=== PATIENT | male | born 1955 | race Caucasian/White ===

== ENCOUNTER 2018-10-25 15:44 | Inpatient (IN) | payer BC, MEDICARE ==
[~2018-10-25] VITALS: Ht 182.9 cm; Wt 118.0 kg
--- NOTE | ~2018-10-25 | PR ---
[place], [place] PROGRESS NOTE NAME: [facility] #: [id number] UNIT #: [id number] ROOM: 532 DOCTOR: AMADO ENGLISH MD,IRVIN BIRTHDATE: [birth year] DOS: 10/27/2018 SUBJECTIVE: The patient was noted quite comfortable at this time with significant reduction in symptoms of wheezing, coughing, shortness breath was noted. He had the bronchoscopy. Denies symptoms of chest pain. Denies symptoms of fever or chills. Denies symptoms of hemoptysis. OBJECTIVE: VITAL SIGNS: For the patient which are recorded showed normal temperature, respiratory rate 18, heart rate of 83, blood pressure 121/71, oxygen saturation recorded on room air 98% saturation. HEENT: Moderate obesity. NECK: Supple. CARDIOVASCULAR: S1, S2 audible. LUNGS: Without any wheeze or crackle at the present time. ABDOMEN: Soft, nontender. Bowel sounds present. EXTREMITIES: Without any acute edema. LABORATORY DATA: Culture of the bronchial washings noted normal deirdre, final results of cultures were pending. IMPRESSION: Resolving acute exacerbation of allergic bronchial asthma, eosinophilic phenotype with current medical management, status post bronchoscopy, reduction in respiratory symptom. PLAN OF TREATMENT: The patient could be discharged home on oral medication, which including tapering dose of prednisone. Outpatient followup to be established for further assessment and comprehensive management plan. Bronchial asthma to be instituted. IRVIN FISCHER MD CM:PNTRANS [id number] IRVIN ENGLISH MD 10/27/182204 interface
--- NOTE | ~2018-10-25 | PR ---
[place], [place] PROGRESS NOTE NAME: GIANFRANCO SIMMS [facility] #: [id number] UNIT #: [id number] ROOM: 532 DOCTOR: PINEDA CHAMBERS MD BIRTHDATE: [birth year] DOS: 10/27/2018 SUBJECTIVE: The patient states that he is 100% better. He is no longer coughing or short of breath. PHYSICAL EXAMINATION: VITAL SIGNS: Pressure is 121/71, pulse of 83, respirations 18, temperature 98.7. LUNGS: Diminished breath sounds, clear. HEART: Regular. ABDOMEN: Obese, soft. EXTREMITIES: Without any edema. LABORATORY DATA: Preliminary sputum culture shows normal deirdre. ASSESSMENT AND PLAN: 1. The patient who presents with acute exacerbation of moderate persistent asthma. The patient is placed on IV antibiotics, IV steroids, status post bronchoscopy. So far, the cultures are negative. 2. Compressive atelectasis, left lung base with a large hiatal hernia. White cell count was normal. Antibiotics were started, which will be continued as an outpatient. The patient is stable. Dr. Moran recommends that he be discharged to home today. Followup as an outpatient. PINEDA CHAMBERS MD CM:PNTRANS [id number] PINEDA CHAMBERS MD 10/27/18 1309 interface
--- NOTE | ~2018-10-25 | CON ---
[place], [place] REPORT OF CONSULTATION NAME: GIANFRANCO SIMMS [facility] #: [id number] UNIT #: [id number] ROOM: 532 DOCTOR: AMADO ENGLISH MDIRVIN BIRTHDATE: [birth year] DOS: 10/26/2018 PULMONARY CONSULTATION, EVALUATION AND MANAGEMENT CONSULTATION REQUESTED BY: Marycruz Hurd MD. REASON FOR CONSULTATION: Assessment of current nonresolving respiratory symptoms noted with severe cough present several times a day, nonproductive with associated wheezing. HISTORY OF PRESENT ILLNESS: A 63-year-old white male patient with history of bronchial asthma that has been noted long-term was getting progressive with respiratory symptoms with wheezing, coughing and shortness of breath. The patient's symptoms have been noted gradually worsening and not responding to the treatment. The cough has been noted severe, nonproductive. The patient's symptoms had been present for several months and not resolved, has been treated as an outpatient with different medications in the past as well. The patient denies symptoms of chest pain. Denies symptoms of hemoptysis. The patient denies symptoms of acute chest pain at this time. Wheezing has been reported continuously. REVIEW OF SYSTEMS: CONSTITUTIONAL SYMPTOMS: Fatigue and tiredness reported. Denies symptoms of fever or chills. EYES: Denies any burning, redness, or tenderness. EARS, NOSE, THROAT SYMPTOMS: No sore throat, hoarseness, otalgia, postnasal drainage or epistaxis. CARDIOVASCULAR: Denies angina pain, edema, or pain in lower extremities. GASTROINTESTINAL SYMPTOMS: Denies dysphagia, nausea, vomiting, diarrhea, abdominal pain, hematemesis, melena, or hematochezia. GENITOURINARY SYMPTOMS: Denies dysuria, suprapubic pain, or hematuria symptoms. CENTRAL NERVOUS SYSTEM: Denies dizziness, headache, diplopia, syncopal episode, or seizures. SKIN: No lesions or rashes. MUSCULOSKELETAL: Denies acute joint pain, redness, or tenderness. Remaining systems were reviewed. They were noted all negative. PAST MEDICAL HISTORY: 1. History of uncomplicated severe persistent bronchial asthma. 2. Essential hypertension. 3. Chronic obesity. 4. Gastroesophageal reflux. 5. Intervertebral disk disease. SOCIAL HISTORY: The patient is , lives at home, has 2 children. He has worked welding for 35 years. Tobacco use was noted from age [age] years old, half a pack of cigarettes a day for 5 years. Tobacco cessation was reported about 26-27 years ago. [place], [place] REPORT OF CONSULTATION NAME: GIANFRANCO SIMMS UNIT #: [id number] ROOM: 532 DOCTOR: AAMDO ENGLISH MD,IRVIN BIRTHDATE: [birth year] FAMILY HISTORY: The patient's mother with history of stroke. Father with complication of myocardial infarction. MEDICATIONS: From home listed on admission as use of ProAir HFA, AccuNeb, Advair, oxygen supplementation 2 liters at bedtime, lisinopril, Singulair, omeprazole, and Suboxone. DRUG ALLERGIES: Noted with no known drug allergies. PHYSICAL EXAMINATION: GENERAL: A 63-year-old white male patient currently resting comfortably on the bed. Height of 6 feet, weight of 117 kilograms, BMI 35. VITAL SIGNS: For the patient which has been recorded in the last 24 hours of hospitalization with normal temperature, respiratory rate 18-20, heart rate 91-108, blood pressure 101/64-122/66. The pulse oxygen saturation on room air was 92% at rest. HEENT: Moderate obesity. Head was atraumatic. Eyes, nonicterus. NECK: Supple. Decreased posterior pharyngeal space, high tongue base and crowding of soft tissue structures. CARDIOVASCULAR: S1, S2 audible. LUNGS: Diffuse moderate reduction in breath sounds with expiratory wheezing was present. There were no crackles. ABDOMEN: Soft. Mild to moderate obesity. Bowel sounds present. EXTREMITIES: Noted with chronic obesity. MUSCULOSKELETAL: Without any acute deformity. VISIBLE SKIN: No lesions or rashes. CENTRAL NERVOUS SYSTEM: Cranial nerves 2-12 intact. No focal deficit. LABORATORY DATA: CBC done yesterday on admission; WBC count normal, hemoglobin 13.8, hematocrit normal, platelet count normal. Eosinophils are 10.7%. BMP was noted as glucose 123, BUN normal, creatinine was normal. Remaining electrolytes normal. The sputum Gram stain of yesterday; many white blood cells, few epithelial cells, many gram-positive cocci in pairs, chains and clusters with rare budding yeast. The patient had a CT scan of the chest that was ordered by the primary care attending yesterday was reviewed personally without contrast limiting the assessment of the mediastinal structures. The CT scan of the chest shows small area of ground-glass opacity noted in the left mid lung. Compression atelectasis in the left lower lobe with a large hiatal hernia as well. It is resulting in elevation of the left hemidiaphragm. The right lung appeared to be clear of any acute infiltration. IMPRESSION: The patient will be admitted to the hospital with: 1. Nonresponsive to the outpatient treatment. Persistent wheezing, which has been noted with progression of the cough and shortness of breath and currently admitted to the hospital for medical management of acute exacerbation, uncomplicated with severe persistent bronchial asthma. The characterization of asthma will be considered as an eosinophilic phenotype with severe eosinophilia noted on admission. 2. The patient with gastroesophageal reflux, hiatal hernia with possibility of microaspiration resulting in uncontrolled bronchial asthma as well. [place], [place] REPORT OF CONSULTATION NAME: GIANFRANCO SIMMS UNIT #: [id number] ROOM: [facility] DOCTOR: IRVIN RHODES MD BIRTHDATE: [birth year] 3. Suspicion of obstructive sleep apnea disorder as well. 4. The patient with moderate obesity. 5. History of essential hypertension. PLAN OF MANAGEMENT: Therapeutic bronchoscopy was assessed for the patient at this time to be performed today for assessment of current severe chronic coughing and wheezing assessment. The patient will be continued on Solu-Medrol. At the present time, the current dose of Solu-Medrol for this patient is 30 mg t.i.d. Bronchodilators every 4 hours and DuoNeb will be continued. Monitor results of sputum cultures and bronchial washing cultures. Outpatient assessment for possible consideration of the use of the medication such as the Fasenra or Nucala or similar medication for the long-term management of the eosinophilic type, uncomplicated, severe persistent bronchial asthma. Continue abstinence from tobacco use as well. Bronchodilators. Aspiration precaution. Possible assessment of gastroesophageal noted uncontrolled. Outpatient assessment to maximize the management as well. Other supportive therapy, plan of management, additional care changes will be ordered based on the progression of his illness. Thank you for allowing me to participate in the care of this patient. IRVIN FISCHER MD CM:CONSTR:REPORT OF CONSULTATION [id number] 10/27/18 0400 interface
--- NOTE | ~2018-10-25 | WRIGHTHP ---
[place], [place] PATIENT HISTORY AND PHYSICAL EXAM NAME: GIANFRANCO SIMMS UNIT #: [id number] ROOM: 532 DOCTOR: PINEDA CHAMBERS MD BIRTHDATE: [birth year] DOS: HISTORY OF PRESENT ILLNESS: This is a 63-year-old patient who is very well known to us. He has been sick for 2 months now. He was initially admitted to the hospital last month with acute asthma exacerbation, went home and continued to get sick and has not improved much and continues to have a cough and increasing difficulty breathing. He has been using his oxygen all night long and taking multiple breathing treatments. Denies having any chest pains or palpitations. PAST MEDICAL HISTORY: Significant for: 1. Moderate intermittent asthma with recent exacerbation. 2. Hiatal hernia with chronic reflux disease. 3. Chronic respiratory failure, oxygen dependent. 4. Benign hypertension. 5. Opioid dependence by history. MEDICATIONS: Lisinopril 40 daily, omeprazole 20 daily, Pulmicort twice a day, breathing treatments q. 6 hours, Singulair 10 daily, Suboxone 3 tablets twice a day. SOCIAL HISTORY: Nonsmoker, does not use any alcohol. PHYSICAL EXAMINATION: GENERAL: He is awake and alert and oriented. VITAL SIGNS: Graphic trend shows pressure of 132/70, pulse of 76, respirations 14, afebrile. NECK: Supple. LYMPH NODES: No lymph nodes. LUNGS: Diminished breath sounds. Scattered wheezes bilaterally. HEART: Regular. ABDOMEN: Obese. EXTREMITIES: Without any edema. ASSESSMENT AND PLAN: 1. The patient with moderate intermittent asthma, which is now becoming persistent. The patient is being admitted for IV steroids. CT of the chest will be ordered. 2. Tracheobronchitis, acute without much resolution on multiple doses of antibiotics as an outpatient. He has failed outpatient regimen, so we will place him on IV steroids and antibiotics will be added. Sputum cultures will be ordered. May require a bronchoscopy. 3. Benign hypertension, controlled. Check echocardiogram. 4. History of opioid dependence. Continue Suboxone. [place], [place] PATIENT HISTORY AND PHYSICAL EXAM NAME: GIANFRANCO SIMMS UNIT #: [id number] ROOM: 532 DOCTOR: PINEDA CHAMBERS MD BIRTHDATE: [birth year] PINEDA CHAMBERS MD CM:JAMIL:PATIENT HISTORY AND PHYSICAL EXAMINATION 5 1 PINEDA CHAMBERS MD 10/26/18 0900 interface
--- NOTE | ~2018-10-25 | PROC NOTE ---
[place], [place] PROCEDURE NOTE NAME: GIANFRANCO SIMMS UNIT #: [id number] ROOM: 532 DOCTOR: AMADO ENGLISH MD,IRVIN BIRTHDATE: [birth year] DOS: 10/26/2018 PROCEDURE: BRONCHOSCOPY PREOPERATIVE DIAGNOSES: The patient with severe nonresolving cough and wheezing for several months ____ exacerbation, rule out endobronchial obstruction and mucous impaction. POSTOPERATIVE DIAGNOSES: Mild to moderate impaction and mucus and bronchial tree bilaterally. FINDINGS: Acute tracheobronchitis. There were no endobronchial obstruction. PROCEDURE DESCRIPTION: Informed consent obtained for the patient. The patient brought to the OR and placed in supine position. Conscious sedation administered by Anesthesia Department. After that, airway introduced in the mouth. Bronchoscope advanced to airway into laryngeal area. Epiglottis and vocal cords were seen. Vocal cord. The patient is moving symmetrically with movements. Bronchoscope advanced vocal cord and tracheal lumen. Tracheal lumen was identified shows small amount of secretion, which appeared to be mostly mucoid. Secretions suctioned at jaspal level. Right upper, right middle, right lower, left upper, lingula, lower lobe division the endobronchial tree was inspected small to moderate impaction of the mucus noted from the endobronchial tree suctioned out with half normal saline wash, sent for culture. There were no endobronchial obstructive lesions. Bronchial washings sent for cultures. Postoperative findings, the patient were discussed with patient's spouse in detail in the recovery room. No changes immediately at this time and the treatment will be necessary. IRVIN FISCHER MD CM:PROCNOTE:PROCEDURE NOTE [id number] IRVIN ENGLISH MD
[~2018-10-25 15:44] MED LIST: ACCUNEB 0.0.63 MG/3 INH; ADVAIR 250/501 EA INH; CARDIZEM CD300 MG PO; CIPRO500 MG PO; DELTASONE5 MG PO; DOXYCYCLINE100 M3 PO; DURAGESIC100 MCG/HR TD; HYDROCODONE BIT1 T11 PO; LISINOPRIL10 MG PO; MOTRIN800 MG PO; NEXIUM40 MG PO; OMEPRAZOLE D/R20 MG PO; OXYGEN NAS; PEN-VEE K500 MG PO; PERCOCET 325 MG1 TA7 PO; PREDNISONE5 MG PO; PROAIR HFA8.5 GM INH; SINGULAIR10 M1 PO; SUBOXONE 8 MG-1 EACH SL; ZESTRIL40 MG PO
[2018-10-25 16:00] VITALS: BP 95/64
[2018-10-25 16:46] LABS: BASO # 0.1 10*3/uL (0.0-0.1); BASO % 1.1 % (0.0-1.0); EOS # 0.7 10*3/uL (0.0-0.4); EOS % 10.7 % (1.0-4.0); HEMATOCRIT 42.1 % (42.0-52.0); HEMOGLOBIN 13.8 g/dl (14.0-18.0); LYMPH # 1.3 10*3/uL (1.3-4.4); LYMPH % 20.3 % (27.0-41.0); MEAN CELL VOLUME 94.6 fl (80.0-94.0); MEAN CORPUSCULAR HGB CONC 32.8 g/dl (33.0-37.0); MEAN PLATELET VOLUME 12.5 fl (9.6-12.3); MONO # 0.6 10*3/uL (0.1-1.0); MONO % 9.6 % (3.0-9.0); NEUT # 3.7 10*3/uL (2.3-7.9); NEUT % 57.7 % (47.0-73.0); PLATELET COUNT AUTOMATED 249 10*3/uL (130-400); RED BLOOD COUNT 4.45 10*6/uL (4.50-5.90); RED CELL DISTRI WIDTH 12.5 % (0-14.5); WHITE BLOOD COUNT 6.4 10*3/uL (4.8-10.8)
[2018-10-25 17:37] LABS: BUN 12 mg/dl (7-24); CHLORIDE 104 mmol/L (98-107); CREATININE 1.04 mg/dL (0.70-1.30); SODIUM 141 mmol/L (136-145)
[2018-10-25 20:00] VITALS: BP 130/84
[2018-10-26] VITALS (10 sets, daily range): BP systolic 101–146; BP diastolic 58–77
[2018-10-27 08:00] VITALS: BP 121/71
[2018-10-27] MEDS ORDERED: PREDNISONE5 MG PO (08:40)
[2018-10-27] MEDS ORDERED: DOXYCYCLINE100 M3 PO (08:40)
[2018-10-27 14:09] LABS: ACID FAST SPEC PROCESSING Concentration (.)
== END 2018-10-27 09:50 | disposition home or self-care (01) | DRG 202 ==
LOC: 5E 15:44
PROVIDERS: Internal Medicine; Internal Medicine Critical Care Medicine
PROC: 0BCB8ZZ Extirpation of Matter from Left Lower Lobe Bronchus, Via Natural or Artificial Opening Endoscopic (ICD-10-PCS; principal; 2018-10-26)
PROC: 0BC68ZZ Extirpation of Matter from Right Lower Lobe Bronchus, Via Natural or Artificial Opening Endoscopic (ICD-10-PCS; principal; 2018-10-26)
PROC: 0BC78ZZ Extirpation of Matter from Left Main Bronchus, Via Natural or Artificial Opening Endoscopic (ICD-10-PCS; principal; 2018-10-26)
PROC: 0BC18ZZ Extirpation of Matter from Trachea, Via Natural or Artificial Opening Endoscopic (ICD-10-PCS; principal; 2018-10-26)
PROC: 0BC48ZZ Extirpation of Matter from Right Upper Lobe Bronchus, Via Natural or Artificial Opening Endoscopic (ICD-10-PCS; principal; 2018-10-26)
PROC: 0BC58ZZ Extirpation of Matter from Right Middle Lobe Bronchus, Via Natural or Artificial Opening Endoscopic (ICD-10-PCS; principal; 2018-10-26)
PROC: 0BC38ZZ Extirpation of Matter from Right Main Bronchus, Via Natural or Artificial Opening Endoscopic (ICD-10-PCS; principal; 2018-10-26)
PROC: 0BC98ZZ Extirpation of Matter from Lingula Bronchus, Via Natural or Artificial Opening Endoscopic (ICD-10-PCS; principal; 2018-10-26)
PROC: 0BC28ZZ Extirpation of Matter from Carina, Via Natural or Artificial Opening Endoscopic (ICD-10-PCS; principal; 2018-10-26)
PROC: 0BC88ZZ Extirpation of Matter from Left Upper Lobe Bronchus, Via Natural or Artificial Opening Endoscopic (ICD-10-PCS; principal; 2018-10-26)
DX: J45.51 Severe persistent asthma with (acute) exacerbation (principal); T17.590A Other foreign object in bronchus causing asphyxiation, initial encounter; F11.20 Opioid dependence, uncomplicated; J98.11 Atelectasis; I10 Essential (primary) hypertension; E66.9 Obesity, unspecified; K21.9 Gastro-esophageal reflux disease without esophagitis; K44.9 Diaphragmatic hernia without obstruction or gangrene; J20.9 Acute bronchitis, unspecified; X58.XXXA Exposure to other specified factors, initial encounter; J45.40 Moderate persistent asthma, uncomplicated; Z68.35 Body mass index [BMI] 35.0-35.9, adult; Y93.89 Activity, other specified; Y92.89 Other specified places as the place of occurrence of the external cause; Y99.8 Other external cause status; Z82.3 Family history of stroke; Z82.49 Family history of ischemic heart disease and other diseases of the circulatory system

== ENCOUNTER → 2019-07-20 | Outpatient (CLI) | payer BC, MEDICARE ==
[2019-07-20 11:06] LABS: BASO # 0.1 10*3/uL (0.0-0.1); BASO % 1.3 % (0.0-1.0); EOS # 0.2 10*3/uL (0.0-0.4); EOS % 4.1 % (1.0-4.0); HEMATOCRIT 44.9 % (42.0-52.0); HEMOGLOBIN 14.1 g/dl (14.0-18.0); LYMPH # 1.4 10*3/uL (1.3-4.4); LYMPH % 30.1 % (27.0-41.0); MEAN CELL VOLUME 95.9 fl (80.0-94.0); MEAN CORPUSCULAR HGB 30.1 pg (27.0-31.0); MEAN CORPUSCULAR HGB CONC 31.4 g/dl (33.0-37.0); MEAN PLATELET VOLUME 10.3 fl (9.6-12.3); MONO # 0.5 10*3/uL (0.1-1.0); MONO % 11.5 % (3.0-9.0); NEUT # 2.4 10*3/uL (2.3-7.9); NEUT % 52.8 % (47.0-73.0); PLATELET COUNT AUTOMATED 225 10*3/uL (130-400); RED BLOOD COUNT 4.68 10*6/uL (4.50-5.90); RED CELL DISTRI WIDTH 11.7 % (0-14.5); WHITE BLOOD COUNT 4.6 10*3/uL (4.8-10.8)
[2019-07-20 11:38] LABS: ALBUMIN 3.5 gm/dl (3.1-4.5); ALKALINE PHOSPHATASE 80 U/L (45-117); BUN 17 mg/dl (7-24); CHLORIDE 101 mmol/L (98-107); CHOLESTEROL 183 mg/dL (<200); CREATININE 0.96 mg/dL (0.70-1.30); FREE T4 0.92 ng/dl (0.76-1.46); HDL CHOLESTEROL 51 mg/dl (40-60); LDL CHOLESTEROL 118 mg/dL (9-159); POTASSIUM 4.3 mmol/L (3.5-5.1); SGOT/AST 13 IU/L (3-35); SGPT/ALT 21 U/L (12-78); SODIUM 135 mmol/L (136-145); TOTAL PROTEIN 7.5 gm/dL (6.4-8.2); TRIGLYCERIDES 69 mg/dl (<150); VLDL CHOLESTEROL 14 mg/dL (6-40)
[2019-07-20 11:43] LABS: VITAMIN D, 25-HYDROXY 29.3 ng/mL (30-100)
== END | disposition home or self-care (01) ==
LOC: LAB 10:01
PROVIDERS: Internal Medicine
DX: Z12.5 Encounter for screening for malignant neoplasm of prostate (principal); D18.01 Hemangioma of skin and subcutaneous tissue; I10 Essential (primary) hypertension; R74.8 Abnormal levels of other serum enzymes; R53.81 Other malaise; E55.9 Vitamin D deficiency, unspecified; R79.89 Other specified abnormal findings of blood chemistry

== ENCOUNTER → 2019-12-17 | Outpatient (CLI) | payer BC, MEDICARE ==
[2019-12-17 12:31] LABS: BASO % 0.9 % (0.0-1.0); EOS # 0.1 10*3/uL (0.0-0.4); EOS % 2.6 % (1.0-4.0); LYMPH # 1.2 10*3/uL (1.3-4.4); LYMPH % 24.9 % (27.0-41.0); MEAN CELL VOLUME 94.8 fl (80.0-94.0); MEAN CORPUSCULAR HGB 30.2 pg (27.0-31.0); MEAN CORPUSCULAR HGB CONC 31.8 g/dl (33.0-37.0); MEAN PLATELET VOLUME 10.2 fl (9.6-12.3); MONO # 0.5 10*3/uL (0.1-1.0); MONO % 9.8 % (3.0-9.0); NEUT # 2.9 10*3/uL (2.3-7.9); NEUT % 61.4 % (47.0-73.0); PLATELET COUNT AUTOMATED 208 10*3/uL (130-400); RED BLOOD COUNT 4.64 10*6/uL (4.50-5.90); RED CELL DISTRI WIDTH 11.9 % (0-14.5); WHITE BLOOD COUNT 4.7 10*3/uL (4.8-10.8)
[2019-12-17 12:49] LABS: ALBUMIN 3.7 gm/dl (3.1-4.5); ALKALINE PHOSPHATASE 64 U/L (45-117); BUN 15 mg/dl (7-24); CHLORIDE 104 mmol/L (98-107); CHOLESTEROL 197 mg/dL (<200); CREATININE 1.04 mg/dL (0.70-1.30); HDL CHOLESTEROL 50 mg/dl (40-60); LDL CHOLESTEROL 129 mg/dL (9-159); POTASSIUM 4.7 mmol/L (3.5-5.1); SGOT/AST 12 IU/L (3-35); SGPT/ALT 25 U/L (12-78); SODIUM 137 mmol/L (136-145); TOTAL PROTEIN 7.5 gm/dL (6.4-8.2); TRIGLYCERIDES 88 mg/dl (<150); VLDL CHOLESTEROL 18 mg/dL (6-40)
[2019-12-17 12:54] LABS: FREE T4 0.99 ng/dl (0.76-1.46)
[2019-12-17 15:11] LABS: VITAMIN D, 25-HYDROXY 33.9 ng/mL (30-100)
== END | disposition home or self-care (01) ==
LOC: LAB 12:05
PROVIDERS: Internal Medicine
DX: Z12.5 Encounter for screening for malignant neoplasm of prostate (principal); Z13.220 Encounter for screening for lipoid disorders; I10 Essential (primary) hypertension; E55.9 Vitamin D deficiency, unspecified

== ENCOUNTER → 2020-01-02 | Outpatient (CLI) | payer BC, MEDICARE | END | disposition home or self-care (01) | LOC: CARD 09:03 | DX: R06.02 Shortness of breath (principal) ==

== ENCOUNTER → 2021-07-10 | Outpatient (CLI) | payer BC, MEDICARE | END | disposition home or self-care (01) | LOC: US 09:30 | PROVIDERS: ATTEND Internal Medicine | DX: I73.9 Peripheral vascular disease, unspecified (principal) ==

== ENCOUNTER → 2022-04-07 | Outpatient (CLI) | payer BC, MEDICARE ==
[2022-04-07 12:07] LABS: BASO # 0.1 10*3/uL (0.0-0.1); BASO % 0.9 % (0.0-1.0); EOS # 0.3 10*3/uL (0.0-0.4); EOS % 5.4 % (1.0-4.0); LYMPH % 17.2 % (27.0-41.0); MEAN CELL VOLUME 94.9 fl (80.0-94.0); MEAN CORPUSCULAR HGB 29.6 pg (27.0-31.0); MEAN CORPUSCULAR HGB CONC 31.2 g/dl (33.0-37.0); MEAN PLATELET VOLUME 9.9 fl (9.6-12.3); MONO # 0.6 10*3/uL (0.1-1.0); MONO % 9.6 % (3.0-9.0); NEUT # 3.8 10*3/uL (2.3-7.9); NEUT % 66.4 % (47.0-73.0); PLATELET COUNT AUTOMATED 213 10*3/uL (130-400); RED BLOOD COUNT 4.53 10*6/uL (4.50-5.90); RED CELL DISTRI WIDTH 11.9 % (0-14.5); WHITE BLOOD COUNT 5.7 10*3/uL (4.8-10.8)
[2022-04-07 12:25] LABS: BUN 10 mg/dl (7-24); CHLORIDE 102 mmol/L (98-107); POTASSIUM 4.6 mmol/L (3.5-5.1); SGPT/ALT 23 U/L (12-78); SODIUM 136 mmol/L (136-145)
[2022-04-07 12:29] LABS: ALKALINE PHOSPHATASE 75 U/L (45-117); CHOLESTEROL 160 mg/dL (<200); CREATININE 0.95 mg/dL (0.70-1.30); LDL CHOLESTEROL 98 mg/dL (9-159); SGOT/AST 13 IU/L (3-35); T3 UPTAKE 32 % (31-39); TOTAL PROTEIN 7.4 gm/dL (6.4-8.2); TRIGLYCERIDES 65 mg/dl (<150)
[2022-04-07 13:01] LABS: VITAMIN D, 25-HYDROXY 35.1 ng/mL (30-100)
== END | disposition home or self-care (01) ==
LOC: LAB 11:42
PROVIDERS: ATTEND Internal Medicine
DX: Z13.6 Encounter for screening for cardiovascular disorders (principal); E55.9 Vitamin D deficiency, unspecified; Z13.89 Encounter for screening for other disorder; Z13.21 Encounter for screening for nutritional disorder; Z13.220 Encounter for screening for lipoid disorders; Z13.228 Encounter for screening for other metabolic disorders; Z13.29 Encounter for screening for other suspected endocrine disorder; Z13.9 Encounter for screening, unspecified; I10 Essential (primary) hypertension; R06.02 Shortness of breath

== ENCOUNTER 2022-12-21 13:45 | Inpatient (IN) | payer BC, MEDICARE ==
[~2022-12-21] VITALS: Ht 182.9 cm; Wt 117.9 kg
[2022-12-21 14:05] VITALS: BP 125/72
[2022-12-21] MEDS ORDERED: LISINOPRIL20 MG PO (14:17)
[2022-12-21] MEDS ORDERED: BUPRENORPHINE-1 EAC2 SL (14:46)
[2022-12-21 14:51] LABS: BASO % 0.6 % (0.0-1.0); EOS # 0.1 10*3/uL (0.0-0.4); EOS % 1.5 % (1.0-4.0); HEMATOCRIT 42.6 % (42.0-52.0); LYMPH # 1.1 10*3/uL (1.3-4.4); LYMPH % 19.8 % (27.0-41.0); MEAN CELL VOLUME 94.9 fl (80.0-94.0); MEAN CORPUSCULAR HGB 30.3 pg (27.0-31.0); MEAN CORPUSCULAR HGB CONC 31.9 g/dl (33.0-37.0); MEAN PLATELET VOLUME 10.1 fl (9.6-12.3); MONO # 0.4 10*3/uL (0.1-1.0); MONO % 7.7 % (3.0-9.0); NEUT # 3.7 10*3/uL (2.3-7.9); PLATELET COUNT AUTOMATED 158 10*3/uL (130-400); RED BLOOD COUNT 4.49 10*6/uL (4.50-5.90); RED CELL DISTRI WIDTH 11.9 % (0-14.5); WHITE BLOOD COUNT 5.3 10*3/uL (4.8-10.8)
[2022-12-21 15:23] LABS: BUN 11 mg/dl (9-23); CHLORIDE 101 mmol/L (98-107); POTASSIUM 3.9 mmol/L (3.4-5.1)
[2022-12-21 16:00] VITALS: BP 102/60
[2022-12-21 20:00] VITALS: BP 112/68
[2022-12-22] VITALS: BP 102/60
[2022-12-22 07:30] VITALS: BP 120/70
== END 2022-12-22 09:55 | disposition home or self-care (01) | DRG 189 ==
LOC: 5E 13:45
PROVIDERS: ADMIT Internal Medicine; ATTEND Internal Medicine
DX: J96.01 Acute respiratory failure with hypoxia (principal); J45.21 Mild intermittent asthma with (acute) exacerbation; J20.9 Acute bronchitis, unspecified; I10 Essential (primary) hypertension; M47.892 Other spondylosis, cervical region; M47.896 Other spondylosis, lumbar region; K21.9 Gastro-esophageal reflux disease without esophagitis

== ENCOUNTER → 2023-07-04 | Outpatient (CLI) | payer OTHER ==
[~2023-07-04] MED LIST changes: +BUPRENORPHINE-1 EAC2 SL; +LISINOPRIL20 MG PO
[2023-07-04 10:10] LABS: BASO % 0.8 % (0.0-1.0); EOS # 0.1 10*3/uL (0.0-0.4); EOS % 2.4 % (1.0-4.0); HEMATOCRIT 44.9 % (42.0-52.0); LYMPH # 1.5 10*3/uL (1.3-4.4); LYMPH % 30.6 % (27.0-41.0); MEAN CELL VOLUME 95.3 fl (80.0-94.0); MEAN CORPUSCULAR HGB 29.5 pg (27.0-31.0); MEAN PLATELET VOLUME 9.9 fl (9.6-12.3); MONO # 0.5 10*3/uL (0.1-1.0); MONO % 10.7 % (3.0-9.0); NEUT # 2.7 10*3/uL (2.3-7.9); NEUT % 55.1 % (47.0-73.0); PLATELET COUNT AUTOMATED 204 10*3/uL (130-400); RED BLOOD COUNT 4.71 10*6/uL (4.50-5.90); RED CELL DISTRI WIDTH 12.3 % (0-14.5)
[2023-07-04 10:45] LABS: VITAMIN D, 25-HYDROXY 49.5 ng/mL (30-100)
[2023-07-04 10:46] LABS: ALKALINE PHOSPHATASE 70 U/L (46-116); BUN 11 mg/dl (9-23); CHLORIDE 100 mmol/L (98-107); CHOLESTEROL 188 mg/dL (<200); FREE T4 1.25 ng/dl (0.89-1.76); LDL CHOLESTEROL 123 mg/dL (9-159); POTASSIUM 4.4 mmol/L (3.4-5.1); SGPT/ALT 12 U/L (10-49); TOTAL PROTEIN 7.2 gm/dL (6.0-8.0); TRIGLYCERIDES 47 mg/dl (<150)
== END | disposition home or self-care (01) ==
LOC: LAB 09:20
PROVIDERS: ATTEND Internal Medicine
DX: Z12.5 Encounter for screening for malignant neoplasm of prostate (principal); I10 Essential (primary) hypertension; E55.9 Vitamin D deficiency, unspecified

== ENCOUNTER → 2023-08-26 | Outpatient (CLI) | payer OTHER ==
[~2023-08-26] MED LIST changes: +FLOMAX0.4 MG PO
== END | disposition home or self-care (01) ==
LOC: CARD 01:01
PROVIDERS: ATTEND Internal Medicine
DX: I25.89 Other forms of chronic ischemic heart disease (principal); R94.31 Abnormal electrocardiogram [ECG] [EKG]; I10 Essential (primary) hypertension; R53.83 Other fatigue; R06.02 Shortness of breath

== ENCOUNTER → 2023-09-02 | Outpatient (CLI) | payer OTHER ==
[2023-09-02 09:21] LABS: BASO % 0.9 % (0.0-1.0); EOS # 0.2 10*3/uL (0.0-0.4); EOS % 4.8 % (1.0-4.0); HEMATOCRIT 42.6 % (42.0-52.0); LYMPH # 1.4 10*3/uL (1.3-4.4); LYMPH % 30.4 % (27.0-41.0); MEAN CELL VOLUME 95.3 fl (80.0-94.0); MEAN CORPUSCULAR HGB 29.8 pg (27.0-31.0); MEAN CORPUSCULAR HGB CONC 31.2 g/dl (33.0-37.0); MEAN PLATELET VOLUME 9.7 fl (9.6-12.3); MONO # 0.5 10*3/uL (0.1-1.0); MONO % 10.1 % (3.0-9.0); NEUT # 2.4 10*3/uL (2.3-7.9); NEUT % 53.1 % (47.0-73.0); PLATELET COUNT AUTOMATED 216 10*3/uL (130-400); RED BLOOD COUNT 4.47 10*6/uL (4.50-5.90); WHITE BLOOD COUNT 4.5 10*3/uL (4.8-10.8)
[2023-09-02 09:35] LABS: ACT PARTIAL THROMBO TIME 28.2 SECONDS (20.0-32.1)
[2023-09-02 09:45] LABS: ALKALINE PHOSPHATASE 68 U/L (46-116); BUN 14 mg/dl (9-23); CHLORIDE 103 mmol/L (98-107); POTASSIUM 4.5 mmol/L (3.4-5.1); SGPT/ALT 16 U/L (5-49); TOTAL PROTEIN 6.9 gm/dL (6.0-8.0)
== END | disposition home or self-care (01) ==
LOC: LAB 08:35
PROVIDERS: ATTEND Internal Medicine
DX: R94.39 Abnormal result of other cardiovascular function study (principal); R06.02 Shortness of breath

== ENCOUNTER → 2024-09-17 | Outpatient (CLI) | payer OTHER ==
[2024-09-17 13:51] LABS: BASO % 0.7 % (0.0-1.0); EOS # 0.1 10*3/uL (0.0-0.4); EOS % 2.4 % (1.0-4.0); HEMATOCRIT 45.7 % (42.0-52.0); MEAN CELL VOLUME 96.4 fl (80.0-94.0); MEAN CORPUSCULAR HGB 29.5 pg (27.0-31.0); MEAN CORPUSCULAR HGB CONC 30.6 g/dl (33.0-37.0); MEAN PLATELET VOLUME 9.1 fl (9.6-12.3); MONO # 0.4 10*3/uL (0.1-1.0); MONO % 6.6 % (3.0-9.0); NEUT # 4.3 10*3/uL (2.3-7.9); NEUT % 72.8 % (47.0-73.0); PLATELET COUNT AUTOMATED 248 10*3/uL (130-400); RED BLOOD COUNT 4.74 10*6/uL (4.50-5.90); RED CELL DISTRI WIDTH 11.5 % (0-14.5)
[2024-09-17 14:14] LABS: ALKALINE PHOSPHATASE 80 U/L (46-116); BUN 12 mg/dl (9-23); CHLORIDE 99 mmol/L (98-107); CHOLESTEROL 186 mg/dL (<200); FREE T4 1.36 ng/dl (0.89-1.76); LDL CHOLESTEROL 125 mg/dL (9-159); POTASSIUM 4.7 mmol/L (3.4-5.1); SGPT/ALT 15 U/L (5-49); TOTAL PROTEIN 7.6 gm/dL (6.0-8.0); TRIGLYCERIDES 69 mg/dl (<150)
[2024-09-17 14:16] LABS: VITAMIN D, 25-HYDROXY 54.1 ng/mL (30-100)
== END | disposition home or self-care (01) ==
LOC: LAB 13:31
PROVIDERS: ATTEND Internal Medicine
DX: Z12.5 Encounter for screening for malignant neoplasm of prostate (principal); I10 Essential (primary) hypertension; R53.83 Other fatigue; E55.9 Vitamin D deficiency, unspecified; E53.9 Vitamin B deficiency, unspecified

== ENCOUNTER → 2024-11-12 | Day surgery (SDC) | payer OTHER ==
[2024-11-12] VITALS (7 sets, daily range): BP systolic 107–160; BP diastolic 56–86
[~2024-11-12] VITALS: Ht 185.4 cm; Wt 122.5 kg
[~2024-11-12] MED LIST changes: +BUPIVACAINE 0.5% 10 ML VIAL ONE; +Lactated Ringer's Solution 1,000 ML IV ONE; +Lactated Ringer's Solution 1,000 ML IV SCH; +Lidocaine Hydrochloride 2% 5 ML SDV IV ONE; +Lidocaine Hydrochloride 30 ML VIAL ONE; +PROPOFOL 200 MG/20 ML VIAL IV ONE; +ceFAZolin sodium 2GM/20ML IV ONE; +ceFAZolin sodium/sodium chlor 20 ML IV ONE
== END | disposition home or self-care (01) ==
LOC: SDC 11-08 08:45
PROVIDERS: ATTEND Surgery
DX: L72.3 Sebaceous cyst (principal); L72.0 Epidermal cyst; I10 Essential (primary) hypertension; J44.1 Chronic obstructive pulmonary disease with (acute) exacerbation; K21.9 Gastro-esophageal reflux disease without esophagitis; Z87.891 Personal history of nicotine dependence; Z91.040 Latex allergy status; Z91.018 Allergy to other foods; Z79.899 Other long term (current) drug therapy; Z98.890 Other specified postprocedural states; Z82.49 Family history of ischemic heart disease and other diseases of the circulatory system

== ENCOUNTER → 2025-09-12 | Outpatient (CLI) | payer OTHER ==
[~2025-09-12] MED LIST changes: -BUPIVACAINE 0.5% 10 ML VIAL ONE; -Lactated Ringer's Solution 1,000 ML IV ONE; -Lactated Ringer's Solution 1,000 ML IV SCH; -Lidocaine Hydrochloride 2% 5 ML SDV IV ONE; -Lidocaine Hydrochloride 30 ML VIAL ONE; -PROPOFOL 200 MG/20 ML VIAL IV ONE; -ceFAZolin sodium 2GM/20ML IV ONE; -ceFAZolin sodium/sodium chlor 20 ML IV ONE
[2025-09-12 09:12] LABS: BASO # 0.0 10*3/uL (0.0-0.1); BASO % 0.9 % (0.0-1.0); EOS # 0.3 10*3/uL (0.0-0.4); EOS % 6.5 % (1.0-4.0); MEAN CELL VOLUME 96.0 fl (80.0-94.0); MEAN CORPUSCULAR HGB 29.7 pg (27.0-31.0); MEAN PLATELET VOLUME 10.0 fl (9.6-12.3); MONO # 0.5 10*3/uL (0.1-1.0); MONO % 10.7 % (3.0-9.0); NEUT # 2.5 10*3/uL (2.3-7.9); NEUT % 53.6 % (47.0-73.0); NUCLEATED RED BLOOD CELL 0.0 % (0.0-0.0); NUCLEATED RED BLOOD CELL 0.0 10*3/uL (0.0-0.0); PLATELET COUNT AUTOMATED 200 10*3/uL (130-400); RED CELL DISTRI WIDTH 11.8 % (0-14.5)
[2025-09-12 09:32] LABS: BUN 15 mg/dl (9-23); FREE T4 1.16 ng/dl (0.89-1.76); LDL CHOLESTEROL 107 mg/dL (9-159); SGPT/ALT 18 U/L (5-49)
[2025-09-12 09:35] LABS: VITAMIN D, 25-HYDROXY 45.5 ng/mL (30-100)
== END | disposition home or self-care (01) ==
LOC: LAB 08:41
PROVIDERS: ATTEND Internal Medicine
DX: Z12.5 Encounter for screening for malignant neoplasm of prostate (principal); R73.9 Hyperglycemia, unspecified; I10 Essential (primary) hypertension; E55.9 Vitamin D deficiency, unspecified; R53.83 Other fatigue; R97.20 Elevated prostate specific antigen [PSA]; E53.9 Vitamin B deficiency, unspecified; M25.50 Pain in unspecified joint; Z13.0 Encounter for screening for diseases of the blood and blood-forming organs and certain disorders involving the immune mechanism; Z13.1 Encounter for screening for diabetes mellitus; Z13.21 Encounter for screening for nutritional disorder; Z13.220 Encounter for screening for lipoid disorders; Z13.228 Encounter for screening for other metabolic disorders; Z13.29 Encounter for screening for other suspected endocrine disorder; Z13.6 Encounter for screening for cardiovascular disorders; Z13.89 Encounter for screening for other disorder; Z13.9 Encounter for screening, unspecified